=== PATIENT | male | born 1995 | race Caucasian/White ===

== ENCOUNTER 2018-06-27 15:27 | Inpatient (IN) | payer BC, OTHER ==
[~2018-06-27] VITALS: Ht 175.3 cm; Wt 59.0 kg
--- NOTE | 2018-06-27 16:00 | NUR ---
Intake Assessment; Patient is a 23 year old male, AOX4, presented to [facility] for ETOH and Opiate withdrawal. Patient appears moderately intoxicated but remained cooperative during nursing assessment. Patient reported to be allergic to Amoxicillin. Denies any seizure history. Admitting Vital signs are as follows ; BP 105/55, HR 88, respirations 18, Spo2 98% on room air, temperature 98.2, denies pain. Educated patient regarding unit protocol and policies, patient verbalized understanding. Will continue with further assessment when patient is up on the unit.
[2018-06-27] MEDS ORDERED: LORAZEPAM 1 MG TABLET PO PRN ×2 (17:00)
[2018-06-27] MEDS ORDERED: MIRALAX 17 GM POWD.PACK PO PRN (17:00)
[2018-06-27] MEDS ORDERED: MAGNESIUM HYDROXIDE 30 ML LIQUID UDC PO PRN (17:00)
[2018-06-27] MEDS ORDERED: BUPRENORPHINE HCL 2 MG TAB.SUBL SL PRN (17:00)
[2018-06-27] MEDS ORDERED: ONDANSETRON ODT 4 MG TAB.RAPDIS SL PRN (17:00)
[2018-06-27] MEDS ORDERED: ONDANSETRON 4 MG/2 ML VIAL IM PRN (17:00)
[2018-06-27] MEDS ORDERED: THIAMINE HCL 200 MG/2 ML VIAL IM ONE (17:00)
[2018-06-27] MEDS ORDERED: LORAZEPAM 2 MG/1 ML VIAL IM PRN (17:00)
[2018-06-27] MEDS ORDERED: MAG HYDROX/AL HYDROX/SIMETH 30 ML LIQUID UDC PO PRN (17:00)
[2018-06-27] MEDS ORDERED: diphenhydrAMINE 50 MG CAPSULE PO PRN (17:00)
[2018-06-27] MEDS ORDERED: ACETAMINOPHEN 325 MG TABLET PO PRN (17:00)
[2018-06-27 17:54] LABS: *AMPHETAMINE, URINE NEGATIVE (NEGATIVE); *BARBITURATE, URINE NEGATIVE (NEGATIVE); *CANNABINOID, URINE NEGATIVE (NEGATIVE); *COCCAINE, URINE NEGATIVE (NEGATIVE); *OPIATE, URINE POSITIVE (NEGATIVE); *PHENCYCLIDINE SCREEN,URINE NEGATIVE (NEGATIVE)
--- NOTE | 2018-06-27 19:00 | NUR ---
Admission note; Patient is a 23 year old male, AOX4, presented to [facility] for ETOH and Opiate withdrawal. Patient appears moderately intoxicated but remained cooperative during nursing assessment. Patient appears disheveled, red eyes noted, appears older than age stated with flat affect. Patient reported to be allergic to Amoxicillin. Denies any seizure history. Admitting Vital signs are as follows ; BP 105/55, HR 88, respirations 18, Spo2 98% on room air, temperature 98.2, denies pain. Educated patient regarding unit protocol and policies, patient verbalized understanding. Will continue with further assessment when patient is up on the unit. Substance use history discussed. Patient reported that he started drinking ETOH when he was 12 years old. At this rate patient has been drinking ETOH (whiskey/beer) for the past 2.5 months, last consumed on 06/26/18. Patient also reported using Heroin, he started using heroin when he was 16 years old. At this rate patient has been using 1 gram of heroin via IV daily for the past 2 months last consumed today 4 hours prior to admission . Patient had multiple attempts in achieving sobriety but remained unsuccessful. Longest sobriety lasted 4.5 months. Patient has been to multiple treatment Centers including [facility], [facility], [facility] and [facility]. Patient appears anxious during assessment. Patient verbalized "I came here today because i need help, i want to stay Sober but i know I can't do it on my own" . Patient stated that he is unhappy and doesn't like himself when he is intoxicated. Using Opiate and ETOH had negatively impacted his life. It started affecting his job performance, relationships and over all feelings of self worth. Patient verbalized "I recently relapsed and used these substances to help cope with anxiety and depression". Patient is seeking for medical help and is open to treatment options after discharge. Patient is motivated to achieve sobriety. Medical and psychiatric history discussed. Patient denies any past medical history. Patient reported history of Anxiety and depression diagnosed in September 2017. Patient received a prescription for Prozac and Zoloft but patient was non-compliant with medication regime. Patient is not taking any home medications at this time. Patient reported history of suicidal ideations in the past that occurred around September 2017. He was admitted at [facility] and was placed on a 5150 hold for Suicidal ideation.Patient denies any suicidal or homicidal ideation at this time. Patient is admitted under the care of Dr. Wells to room 308. Skin check done, skin is intact. Oriented patient to unit by DAIRY PROCESSING EQUIPMENT OPERATOR. Safety measures secured. Will continue to monitor patient.
--- NOTE | 2018-06-27 19:30 | NUR ---
Start of Shift Note Received a 23 y/o male px, admitted for medically supervised withdrawal from ETOH and Heroin. Px will be placed on 5 day Ativan and 4 day Subutex taper tomorrow, 06/28/2018. Last reported COWS 2 and CIWA 3 by AM shift nurse. During the rounds at 1930, px is awake on bed in fowlers position watching TV. Px appears anxious. He is unshaven with flat affect and poor eye contact. He states that his anxiety is mild at 3/10. He requested for sleep medications later tonight. Bed on lowest position, side rails up 2x, and call light within reach. Well continue to monitor.
[2018-06-27 20:00] VITALS: BP 98/57
--- NOTE | 2018-06-27 20:00 | NUR ---
COWS 3 and CIWA 5 Upon assessment, px appears anxious. He is unshaven with flat affect and poor eye contact. He states that his anxiety is mild at 3/10. No more complaints at the moment. IN= 69. will continue to monitor.
--- NOTE | 2018-06-27 21:07 | NUR ---
PRN Ativan and Benadryl Px received Ativan 1 mg PO for CIWA 5 and Benadryl 50 mg PO for insomnia. will continue to monitor
--- NOTE | 2018-06-27 22:10 | NUR ---
PRN Ativan and Benadryl reassessment On assessment, px is still awake on bed in fowlers position. He states that his anxiety is still mild at around2-3/10. will continue to monitor
[2018-06-27 22:25] LABS: AMYLASE 52 U/L (25-115); LIPASE 90 U/L (73-393)
[2018-06-27 22:29] LABS: ETHANOL < 3 MG/DL (0-0)
[2018-06-27 22:30] LABS: ALANINE AMINOTRANSFERASE 27 U/L (16-63); ALKALINE PHOSPHATASE 77 U/L (50-136); ASPARTATE AMINOTRANSFERASE 20 U/L (15-37); BILIRUBIN,TOTAL 0.4 mg/dL (0.2-1.0); CARBON DIOXIDE 31 mmol/L (21-32); CHLORIDE 104 mmol/L (98-107); GLUCOSE 102 mg/dL (74-106); MAGNESIUM 2.1 mg/dL (1.8-2.4); POTASSIUM 4.2 mmol/L (3.5-5.1); TOTAL PROTEIN, SERUM 7.3 g/dL (6.4-8.2); UREA NITROGEN, BLOOD 19 mg/dL (7-18)
[2018-06-27 22:43] LABS: BASOPHILS # (AUTO) 0.1 K/uL (0.0-8.0); BASOPHILS % (AUTO) 1.1 % (0.0-2.0); EOSINOPHILS # (AUTO) 0.1 K/uL (0.0-0.7); EOSINOPHILS % (AUTO) 2.6 % (0.0-7.0); HEMATOCRIT 43.1 % (36.7-47.1); HEMOGLOBIN 15.4 g/dL (12.5-16.3); LYMPHOCYTES # (AUTO) 2.2 K/uL (20.0-40.0); LYMPHOCYTES % (AUTO) 43.3 % (20.5-51.5); MEAN CORPUSCULAR HGB CONC 36 g/dL (32.5-36.3); MEAN CORPUSCULAR VOLUME 89.2 fL (73.0-96.2); MONOCYTES # (AUTO) 0.6 K/uL (2.0-10.0); MONOCYTES % (AUTO) 10.8 % (0.0-11.0); NEUTROPHILS # (AUTO) 2.2 K/uL (1.8-8.9); NEUTROPHILS % (AUTO) 42.2 % (38.5-71.5); PLATELET COUNT (AUTO) 223 K/uL (152-348); RED BLOOD CELL COUNT(AUTO) 4.83 MIL/uL (4.06-5.63); WHITE BLOOD COUNT (AUTO) 5.1 K/uL (3.6-10.2)
[2018-06-28] VITALS: BP 96/61
--- NOTE | 2018-06-28 | NUR ---
COWS and CIWA deferred COWS and CIWA deferred due to the px is asleep. To assess if the px is awake per doctor's order. will continue to monitor
[2018-06-28 04:00] VITALS: BP 90/60
--- NOTE | 2018-06-28 07:05 | NUR ---
End of Shift Note During the shift at 2106, px received Benadryl 50 mg PO for insomnia and Ativan 1 mg PO for CIWA 5. They were effective. Oral intake is 500 ml, voided 1x, without BM. Px slept for 8 hours. Last COWS 3 and CIWA 5. Bed on lowest position, side rails up 2x, and call light within reach. Px endorsed to AM shift nurse.
--- NOTE | 2018-06-28 07:50 | NUR ---
START OF SHIFT NOTE Received report from night nurse, 23 year old male admitted for ETOH/Heroin withdrawal. Patient to be start on Subutex and Ativan taper this morning. Per endorsement received PRN Benadryl, Ativan effective per night nurse, Last CIWA-5, COWS-3, slept for 8 hours. Received patient asleep responsive to verbal and tactile stimuli. Breathing normal no SOB noted, respiration even non labored. Skin intact warm and dry to touch. All safety measures in place. Will cont with plan of care.
[2018-06-28 08:00] VITALS: BP 105/60
[2018-06-28] MEDS: FOLIC ACID 1 MG TABLET PO SCH (08:46)
[2018-06-28] MEDS: THIAMINE HCL 100 MG TABLET PO SCH (08:46)
[2018-06-28] MEDS: MULTIVITAMINS,THERAPEUTIC TABLET PO SCH (08:46)
[2018-06-28] MEDS: LORAZEPAM 1 MG TABLET PO SCH ×4 (08:46→22:31)
--- NOTE | 2018-06-28 08:46 | NUR ---
COWS/CIWA ASSESSMENT COWS-4, CIWA-6. Scheduled Subutex was not administered due to low COWS score and patient verbalized he is not experiencing any withdrawal symptoms MD notified. Administered schedule Ativan for CIWA-6.
[2018-06-28] MEDS ORDERED: 4 DAY TAPER BUPRENORPHINE -SERENITY PROTOCOL SL PRN ×2 (09:00→17:00)
[2018-06-28] MEDS: BUPRENORPHINE HCL 2 MG TAB.SUBL SL SCH ×3 (09:00→21:59)
[2018-06-28] MEDS ORDERED: 4 DAY TAPER OF LORAZEPAM -SERENITY PROTOCOL PO PRN (09:00)
[2018-06-28] MEDS ORDERED: TUBERCULIN,PURIF.PROT.DERIV. 5 TU/0.1 ML TEST ID ONE (09:00)
[2018-06-28 12:00] VITALS: BP 107/62
--- NOTE | 2018-06-28 13:34 | NUR ---
CIWA/COWS ASSESSMENT COWS-4, CIWA-8, patient presented with flat facial expression, poor eye contact, anxious, agitated, restless, bilateral hand tremors. Patient was given his schedule medications. Will cont to monitor.
[2018-06-28 16:00] VITALS: BP 110/63
[2018-06-28] MEDS ORDERED: 5 DAY TAPER OF LORAZEPAM -SERENITY PROTOCOL PO PRN (17:00)
--- NOTE | 2018-06-28 19:23 | NUR ---
END OF SHIFT NOTE Gave report to night nurse, 23 year old male admitted for ETOH/Heroin withdrawal. Patient currently on 4 days Subutex and 5 days Ativan taper. Subutex taper hasn't started yet due to low COWS score-5 and patient denies any s/s of Heroin withdrawal but Ativan is tolerating well. Patient presented with sad facial expression, isolative, anxious, agitated, sweats, bilateral hand tremors. He rested in his room most of the shift, Encourage patient to attend groups activities to learn new coping skills. Last noted CIWA 5, COWS-9. All needs attended to promptly.Endorse patient to night nurse in stable condition.
--- NOTE | 2018-06-28 19:25 | NUR ---
START OF SHIFT Patient is a 23-year-old male admitted on 06/27/18 for ETOH and opiate withdrawal. Patient is currently on a 4-day Subutex and 5-day Ativan taper, both of which started today; however, patient has yet to receive any Subutex due to low COWS scores. Last COWS was 5, last CIWA was 9 per endorsement. Patient did not receive any PRN medications today. Upon assessment, patient is observed sleeping in bed with eyes closed, respirations even and unlabored. Patient is on fall and seizure precautions with no history of seizure. Safety measures in place, side rails up x2, bed locked in low position, call light within reach. Will continue to monitor.
[2018-06-28 20:00] VITALS: BP 115/56
--- NOTE | 2018-06-28 20:00 | NUR ---
COWS 5, CIWA 9 Patient is awake and requesting to go down to the smoking patio. Patient complains of body aches, some chills and anxiety; fine tremors noted bilaterally. Current COWS score is 5, CIWA is 9. SN to administer meds as ordered. Will continue to monitor.
--- NOTE | 2018-06-28 22:00 | NUR ---
SUBUTEX HELD Subutex held per order due to COWS less than 8. Charge nurse Funmi notified.
--- NOTE | 2018-06-28 22:29 | NUR ---
COWS 6, CIWA 10 Patient woke up complaining of symptoms of opiate withdrawal. SN performed COWS and CIWA at this time; scores 6 and 10, respectively.
[2018-06-28] MEDS: IBUPROFEN 600 MG TABLET PO PRN (22:31)
--- NOTE | 2018-06-28 23:31 | NUR ---
PRN MOTRIN Patient reports body aches 04/10. PRN Motrin given PO. Safety measures in place, side rails up x2, bed locked in low position, call light within reach. Will monitor for effectiveness. Addendum: 06/29/18 at 0320 by MORRO FLOYD LVN PRN MOTRIN given at 2230. Reassessment at 2330, noted to be effective.
[2018-06-29] VITALS: BP 102/59
--- NOTE | 2018-06-29 | NUR ---
COWS & CIWA DEFERRED COWS and CIWA deferred due to patient sleeping; to be assessed and scored while patient is awake. Respirations even and unlabored. Safety measures in place, side rails up x2, bed locked in low position, call light within reach. Will continue to monitor.
--- NOTE | 2018-06-29 01:50 | NUR ---
COWS 5, CIWA 9 Patient is awake, requested snacks and beverage from kitchen. Patient reports anxiety and chills, decreased body aches, some restlessness and difficulty falling back to sleep. Current COWS 5 and CIWA 9. Safety measures in place, call light within reach. Will continue to monitor.
[2018-06-29 04:00] VITALS: BP 96/56
--- NOTE | 2018-06-29 04:00 | NUR ---
COWS & CIWA DEFERRED COWS and CIWA deferred at this time due to patient sleeping; to be assessed and scored while patient is awake. Respirations even and unlabored. Safety measures in place, call light within reach, bed locked in low position. Will continue to monitor.
--- NOTE | 2018-06-29 07:10 | NUR ---
END OF SHIFT Patient is a 23-year-old male admitted on 06/27/18 for ETOH and opiate withdrawal. Patient is currently on a 4-day Subutex and 5-day Ativan taper, both of which started yesterday; tolerating well. Patient has yet to receive any Subutex due to low COWS scores. Last COWS was 5, last CIWA was 9 at 0150. Patient received PRN Motrin for body aches, noted to be effective. Patient slept for 7 hours, total intake of 855mL, void x1, stool x0. Patient is on fall and seizure precautions with no history of seizure. Safety measures in place, side rails up x2, bed locked in low position, call light within reach. Will endorse to day shift.
--- NOTE | 2018-06-29 07:40 | NUR ---
START OF SHIFT NOTE Received report from night nurse, 23 year old male admitted for ETOH/Heroin withdrawal. Patient continues with Ativan taper but Subutex still on hold due to low COWS score. Per endorsement received PRN Motrin effective per night nurse, Last CIWA-9, COWS-5, slept for 7 hours. Received patient alert awake oriented x4. Breathing normal no SOB noted, respiration even non labored. Skin intact warm and dry to touch. Educated patient current plan of the day and medication regimen, patient verbalized understanding.All safety measures in place. Will cont with plan of care.
[2018-06-29 08:00] VITALS: BP 107/66
[2018-06-29] MEDS: FOLIC ACID 1 MG TABLET PO SCH (08:55)
[2018-06-29] MEDS: MULTIVITAMINS,THERAPEUTIC TABLET PO SCH (08:55)
[2018-06-29] MEDS: LORAZEPAM 1 MG TABLET PO SCH ×3 (08:55→20:47)
[2018-06-29] MEDS: THIAMINE HCL 100 MG TABLET PO SCH (08:55)
--- NOTE | 2018-06-29 08:55 | NUR ---
COWS/CIWA ASSESSMENT Patient complains of body aches, anxiety, agitation, restless, sweats,chills, runny nose, stomach cramps, increased pulse rate, large pupil, fatigue, anhedonia, bilateral hand tremors. COWS score -13, and CIWA-11. Subutex taper initiate and other Meds given as ordered. Will cont to monitor.
[2018-06-29] MEDS ORDERED: BUPRENORPHINE HCL 2 MG TAB.SUBL SL SCH (09:00)
[2018-06-29 12:00] VITALS: BP 122/64
[2018-06-29] MEDS: BUPRENORPHINE HCL 2 MG TAB.SUBL SL SCH ×2 (14:33→20:48)
--- NOTE | 2018-06-29 14:33 | NUR ---
CIWA/COWS ASSESSMENT CIWA-12, COWS-12, Patient continues to exhibited s/s of withdrawal such as, anxiety, agitation, restless, body aches, runny nose, stomach cramps, sweats, chills. Patient was given schedule medications. Will cont to monitor.
[2018-06-29] MEDS: IBUPROFEN 600 MG TABLET PO PRN ×2 (14:42→20:47)
--- NOTE | 2018-06-29 14:42 | NUR ---
PRN MOTRIN Patient c/o general body aches 5/10. PRN Motrin 600mg PO was given as ordered. Will cont to monitor and reassess the patient.
--- NOTE | 2018-06-29 15:42 | NUR ---
MOTRIN REASSESSMENT Patient reported body aches lower to 2/10. Motrin was effective.
[2018-06-29 16:00] VITALS: BP 117/70
[2018-06-29] MEDS: DICYCLOMINE HCL 20 MG TABLET PO PRN (16:39)
--- NOTE | 2018-06-29 16:39 | NUR ---
PRN BENTYL Patient c/o of abdominal cramps /10, PRN Bentyl 20mg PO administered as ordered. Will cont to monitor and reassess.
--- NOTE | 2018-06-29 17:39 | NUR ---
BENTYL REASSESSMENT Patient reported stomach cramps lower to 2/10. Bentyl was effective.
--- NOTE | 2018-06-29 19:12 | NUR ---
END OF SHIFT NOTE Gave report to night nurse, Patient admitted for ETOH/Heroin withdrawal. Patient continues with his Ativan/Subutex taper tolerating well. Patient presented with flushed face, increased anxiety, agitation, diaphoresis, fatigue, restless, stomach cramps, body aches, patient received his scheduled medication and also received PRN Motrin for body aches and Bentyl for stomach cramps noted to be effective. Patient noted attending groups activities. Vital signs WNL. Encouraged patient to use diversional activities to alleviate anxiety. Patient denies any SI/HI. Last CIWA-11, COWS-11. All needs attended. Endorse care to night nurse.
--- NOTE | 2018-06-29 19:40 | NUR ---
Start of shift note Received report from day shift nurse. Patient is a 23 year old male admitted for ETOH and Opiate withdrawal. Patient is on 1st day of his 4 day Subutex and 5 day Ativan taper. Patient was given PRN Motrin and Bentyl , effective. Patient in the room, resting. Patient's room dirty and odorous. Patient presents with flat affect, disheveled and odorous. Safety measures in place. Call light within reach. Will continue to monitor.
[2018-06-29 20:00] VITALS: BP 100/60
--- NOTE | 2018-06-29 20:00 | NUR ---
COWS and CIWA assessment Patient reports anxiety, restless legs, irritable, fatigue, hot and cold sweats, stuffy nose, body aches, yawning, tremors and sensitive to light. COWS 13 and CIWA 13.
--- NOTE | 2018-06-29 20:47 | NUR ---
PRN Motrin administration Patient c/o generalized body aches. Will monitor for effectiveness
--- NOTE | 2018-06-29 21:47 | NUR ---
PRN Motrin administration Patient lying in bed with eyes closed. Respiration even and unlabored. No facial grimacing. Will continue to monitor
--- NOTE | 2018-06-30 | NUR ---
COWS and CIWA deferred Patient lying in bed with eyes closed. Respiration even and unlabored. VS refused. Will continue to monitor
--- NOTE | 2018-06-30 04:00 | NUR ---
COWS and CIWA deferred Patient lying in bed with eyes closed. Respiration even and unlabored. VS refused. Will continue to monitor
--- NOTE | 2018-06-30 07:13 | NUR ---
End of shift note Patient slept 9 hours. Fluid intake 925 ml. Voided x 1. No BM. Monitored patient throughout shift. Patient isolative and withdrawn. Patient presented with flat affect, disheveled and odorous. Patient reported anxiety, restless legs, fatigue, hot and cold sweats, stuffy nose, body aches, tremors and sensitive to light. Scheduled taper given as ordered. PRN Motrin given for generalized body aches. Safety measures in place. Call light within reach. Will continue. Last and CI.
--- NOTE | 2018-06-30 07:30 | NUR ---
Start of Shift Production Quality Analyst received report on 23 year old male admitted on 06/27/18 for medical management of ETOH and Opiate withdrawals. Pt endorses allergies to Amoxicillin, full code and regular diet. Denies PMH, endorses PPH of anxiety and depression. Pt currently on a 4 day Subutex and 5 day Ativan taper, with last CIWA 13 and COWS 13, per NOC report. Pt was administered Motrin as PRN medication on NOC. Production Quality Analyst encounters pt in pts room with pt resting with eyes closed. Even and unlabored respirations noted. Bed in low position with wheels locked and side rails up x2. Will continue to monitor, support and encourage according to plan of care.
[2018-06-30 08:30] VITALS: BP 113/75
--- NOTE | 2018-06-30 08:30 | NUR ---
CIWA 11/COWS 11 Pt is anxious, restless, tremulous, diaphoretic, with stuffy nose and complains of chills, myalgia and stomach cramps. Will continue to monitor, support and encourage according to plan of care.
[2018-06-30 09:07] LABS: HEPATITIS B SURFACE AG Negative (Negative)
[2018-06-30] MEDS: LORAZEPAM 1 MG TABLET PO SCH ×2 (09:47→20:39)
[2018-06-30] MEDS: MULTIVITAMINS,THERAPEUTIC TABLET PO SCH (09:47)
[2018-06-30] MEDS: DICYCLOMINE HCL 20 MG TABLET PO PRN (09:47)
[2018-06-30] MEDS: FOLIC ACID 1 MG TABLET PO SCH (09:47)
[2018-06-30] MEDS: BUPRENORPHINE HCL 2 MG TAB.SUBL SL SCH ×3 (09:47→20:39)
[2018-06-30] MEDS: THIAMINE HCL 100 MG TABLET PO SCH (09:47)
--- NOTE | 2018-06-30 09:47 | NUR ---
CHRIS Stoll Pt complains of stomach cramps/pain. Hand I Blocker administered medication to order, with pt tolerating well. Will continue to monitor, support and encourage according to plan of care.
--- NOTE | 2018-06-30 10:47 | NUR ---
PRN Re-Assessment Pt endorses some relief in intensity of cramps, " it cramps, but not as bad." Will continue to monitor, support and encourage according to plan of care.
[2018-06-30 12:00] VITALS: BP 108/68
--- NOTE | 2018-06-30 12:00 | NUR ---
CIWA 11/COWS 10 Pt is diaphoretic, tremulous, anxious and restless. Pt with stuffy nose, and complaints of myalgia and chills. Will continue to monitor, support and encourage according to plan of care.
--- NOTE | 2018-06-30 14:26 | NUR ---
Therapist prompted client to attend group therapy.
[2018-06-30 16:30] VITALS: BP 109/67
--- NOTE | 2018-06-30 16:30 | NUR ---
CIWA 12/COWS 12 Pt is tremulous, anxious, restless and diaphoretic, with complaints of chills, nausea and myalgia. Will continue to monitor, support and encourage according to plan of care.
[2018-06-30] MEDS: METHOCARBAMOL 750 MG TABLET PO PRN (17:30)
[2018-06-30] MEDS: CLONIDINE HCL 0.1 MG TABLET PO PRN (17:30)
[2018-06-30] MEDS: HYDROXYZINE PAMOATE 25 MG CAPSULE PO PRN (17:30)
--- NOTE | 2018-06-30 17:30 | NUR ---
PRN Clonidine/Vistaril Pt complains of anxiety 02/08. Pt is anxious and restless. Cloth Winder administered medication per order with pt toleratign well. Will continue to monitor, support and encourage according to plan of care.
--- NOTE | 2018-06-30 17:30 | NUR ---
CHRIS Murillo Pt with complaints of muscle spasms and aches. Qi Specialist administered per order with pt tolerating well. Will continue to monitor, support and encourage according to plan of care.
--- NOTE | 2018-06-30 18:30 | NUR ---
PRN Clonidine/Vistaril Re-Assessment Pt endorses feeling better about his anxiety. Will continue to monitor, support and encourage according to plan of care.
--- NOTE | 2018-06-30 18:30 | NUR ---
CHRIS Murillo Re-Assessment Pt endorses feeling relief, " not nearly as bad, thanks." Will continue to monitor, support and encourage according to plan of care.
--- NOTE | 2018-06-30 19:13 | NUR ---
End of Shift Electrician Supervisor Airplane provided report on 23 year old male admitted on 06/27/18 for medical management of ETOH and Opiate withdrawals. Pt endorses allergies to Amoxicillin, full code and regular diet. Denies PMH, endorses PPH of anxiety and depression. Pt currently on a 4 day Subutex and 5 day Ativan taper, with last CIWA 12 and COWS 12, recorded at 1630. Pt was administered Bentyl(stomach cramps), Robaxin(myalgia) and Clonidine/Vistaril(anxiety) as PRN medications on this shift. Pt is A/O x4 and able to make needs known. Pt with clear thought and speech process. Pt with a flat affect an depressed mood. Anxious, restless, tremulous and diaphoretic with complaints of myalgia, chills and nausea. Bed in low position with wheels locked and side rails up x2.
--- NOTE | 2018-06-30 19:30 | NUR ---
Start of shift note Received report from day shift nurse. Patient is a 23 year old male admitted for ETOH/Opiate withdrawal. Patient is on 2nd day of his 4 day Subutex taper and 5 day Ativan taper. Patient was given PRN Clonidine, Robaxin and Bentyl. Last COWS 12 and CIWA 12. Patient room dirty, clothes thrown on floor. Patient alert and oriented x 4. Patient presents with flat affect, disheveled and anxious. Safety measures in place. Call light within reach. Will continue to monitor
[2018-06-30 20:00] VITALS: BP 106/65
--- NOTE | 2018-06-30 20:00 | NUR ---
COWS and CIWA assessment Patient reports anxiety, restlessness, irritability, hot and cold sweats, stuffy nose, abdominal cramping and tremors . COWS 11 and CIWA 10
[2018-06-30] MEDS: TRAZODONE 50 MG TABLET PO PRN (20:50)
--- NOTE | 2018-06-30 20:50 | NUR ---
PRN Trazadone administration Patient requests for sleep aid. Will monitor for effectiveness
--- NOTE | 2018-06-30 22:00 | NUR ---
PRN Trazadone re-assessment Patient lying in bed with eyes closed. Respiration even and unlabored. Will continue to monitor
[2018-07-01] VITALS: BP 114/80
--- NOTE | 2018-07-01 | NUR ---
COWS and CIWA deferred Patient lying in bed with eyes closed. Respiration even and unlabored. Will continue to monitor
--- NOTE | 2018-07-01 04:00 | NUR ---
COWS and CIWA deferred Patient lying in bed with eyes closed. Respiration even and unlabored. Will continue to monitor
--- NOTE | 2018-07-01 07:08 | NUR ---
End of shift note Patient slept 9 hours. Fluid intake 1,710 ml. Voided x 3. BM x 1. Patient alert and Patient presented with flat affect, disheveled and anxiety. Patient was given PRN trazadone for sleep. Patient states medications are effective in controlling his withdrawal symptoms. Patient compliant with medication and treatment plan. Safety measures in place. Call light within reach. Will continue to monitor. Last COWS 11 and CIWA 10.
--- NOTE | 2018-07-01 07:30 | NUR ---
Start of Shift Pot Holder Binder received report on 23 year old male admitted on 06/27/18 for medical management of ETOH and Opiate withdrawals. Pt endorses allergies to Amoxicillin, full code and regular diet. Denies PMH, endorses PPH of anxiety and depression. Pt currently on a 4 day Subutex and 5 day Ativan taper, with last CIWA 10 and COWS 11, per NOC report. Pt was administered Trazodone(insomnia) as PRN medication on NOC. Pot Holder Binder encounters pt in pts room with pt resting with eyes closed. Even and unlabored respirations noted. Bed in low position with wheels locked and side rails up x2. Will continue to monitor, support and encourage according to plan of care.
[2018-07-01 08:30] VITALS: BP 94/49
--- NOTE | 2018-07-01 08:30 | NUR ---
CIWA 8/COWS 9 Pt is anxious, restless and tremulous with chills and nausea. Will continue to monitor, support and encourage according to plan of care.
[2018-07-01] MEDS ORDERED: LORAZEPAM 1 MG TABLET PO SCH (09:00)
[2018-07-01] MEDS ORDERED: BUPRENORPHINE HCL 2 MG TAB.SUBL SL SCH (09:00)
[2018-07-01] MEDS: FOLIC ACID 1 MG TABLET PO SCH (09:23)
[2018-07-01] MEDS: MULTIVITAMINS,THERAPEUTIC TABLET PO SCH (09:23)
[2018-07-01] MEDS: THIAMINE HCL 100 MG TABLET PO SCH (09:23)
[2018-07-01 12:29] VITALS: BP 119/78
--- NOTE | 2018-07-01 12:41 | NUR ---
CIWA 7/COWS 6 Pt complains of myalgia and anxiety, pt with tremors and diaphoresis. Will continue to monitor, support and encourage according to plan of care.
[2018-07-01] MEDS ORDERED: IBUP-1955 PO (13:59)
[2018-07-01] MEDS ORDERED: CLON0.1T14 PO (13:59)
[2018-07-01] MEDS ORDERED: METH-406 PO (13:59)
[2018-07-01] MEDS ORDERED: HYDR-3895 PO (13:59)
[2018-07-01] MEDS ORDERED: TRAZ-213 PO (13:59)
[2018-07-01 16:30] VITALS: BP 106/64
--- NOTE | 2018-07-01 17:04 | NUR ---
CIWA 6/COWS 7 Pt is tremulous, anxious, diaphoretic and restless. Pt with complaints of nausea, chills, and myalgia. Will continue to monitor, support and encourage according to plan of care.
--- NOTE | 2018-07-01 18:56 | NUR ---
End of Shift Food Specialist provided report on 23 year old male admitted on 06/27/18 for medical management of ETOH and Opiate withdrawals. Pt endorses allergies to Amoxicillin, full code and regular diet. Denies PMH, endorses PPH of anxiety and depression. Pt has completed a 4 day Subutex and 5 day Ativan taper, with last CIWA 6 and COWS 7, recorded at 1630. Pt is scheduled for discharge tomorrow. No PRN medications administered this shift . Pt is A/O x4 and able to make needs known. Pt with a clear thought and speech process. Flat affect with depressed mood. Pt denies SI/HI or A/VH. Pt is anxious and restless, but cooperative and pleasant with remote mortgage underwriter. Pt is withdrawn and guarded. Bed in low position with wheels locked and side rails up x2.
--- NOTE | 2018-07-01 19:30 | NUR ---
Start of Shift Patient Received. Per endorsement, patient completed a modified 4 day Subutex and 5 day Ativan taper. Patient is set for discharge tomorrow morning to [facility]. No PRN Medications administered. Last noted CIWA 6 and COWS 7. Upon rounds patient is noted in bed, awake, alert and verbally responsive. Patient is noted to be disheveled, uncombed hair, and unshaved. Patient avoids eye contact and noted to be fidgety, anxious, and easily irritable, with flat affect. Patient is able to verbalize that medication have been effective in minimize signs and symptoms of withdrawal. All needs attended to promptly. Will continue plan of care as ordered.
[2018-07-01 20:30] VITALS: BP 106/64
[2018-07-01] MEDS: CLONIDINE HCL 0.1 MG TABLET PO PRN (21:34)
[2018-07-01] MEDS: METHOCARBAMOL 750 MG TABLET PO PRN (21:34)
[2018-07-01] MEDS: TRAZODONE 50 MG TABLET PO PRN (21:34)
--- NOTE | 2018-07-01 21:40 | NUR ---
PRN Medication Administration patient is noted to verbalize increased anxiety, intermittent sweats, restless legs, body aches, and inability of falling asleep. PRN Robaxin, Clonidine, and trazodone. Will continue to monitor.
--- NOTE | 2018-07-01 22:40 | NUR ---
PRN Medication Reassessment Patient is noted in bed with eyes closed. Breathing even and non labored. No signs of restlessness or discomfort noted. PRN Clonidine, Robaxin, and Trazodone noted to be effective. Will continue to monitor.
--- NOTE | 2018-07-02 00:49 | NUR ---
COWS and CIWA Assessment Patient is noted in bed with eyes closed. Breathing even and non labored. Patient refused vitals. CIWA and COWS not able to complete assessment as per order. No restlessness or discomfort noted. Will continue to monitor.
--- NOTE | 2018-07-02 07:18 | NUR ---
End of Shift Patient is in bed with eyes closed. Breathing even and non labored. No signs of restlessness or discomfort noted. Patient has completed a modified 4 day Subutex and 5 day Ativan taper with orders for discharge this morning to [facility]. Patient was noted with Patient received PRN Clonidine, Robaxin, and Trazodone with medications noted to be effective. Last noted CIWA 6 and COWS 5. Patient was noted with increased anxiety, restlessness, insomnia, increased sweats, irritability, and intermittent body aches. Patient is noted to be disheveled, uncombed hair, unshaved, and avoids eye contact. All needs attended to promptly. Will continue plan of care as ordered.
--- NOTE | 2018-07-02 07:20 | NUR ---
Start Of Shift Patient is a 23 yr old male who was admitted to [facility] on 06/27/18 for a medically supervised withdrawal from ETOH ( Whisky) and Opiates ( heroin), he has completed a 4 day Subutex and 5 day Ativan taper and will be discharged this AM to " [place] [facility] ". PRN medications given on PM shift: Robaxin, Clonidine and Trazodone, he slept for 7 hours and last COWS 6 and CIWA 5. Currently he is in bed asleep, breathing even and unlabored, call light within reach. Continue to follow MD orders for discharge.
[2018-07-02 08:00] VITALS: BP 99/48
--- NOTE | 2018-07-02 09:15 | NUR ---
COWS 5 CIWA 6 Patient presents with increased anxiety, restlessness and generalized body aches Robaxin 750mg PO and Vistaril 50mg PO given
[2018-07-02] MEDS: HYDROXYZINE PAMOATE 25 MG CAPSULE PO PRN (09:18)
[2018-07-02] MEDS: MULTIVITAMINS,THERAPEUTIC TABLET PO SCH (09:18)
[2018-07-02] MEDS: THIAMINE HCL 100 MG TABLET PO SCH (09:18)
[2018-07-02] MEDS: FOLIC ACID 1 MG TABLET PO SCH (09:18)
[2018-07-02] MEDS: METHOCARBAMOL 750 MG TABLET PO PRN (09:18)
--- NOTE | 2018-07-02 09:18 | NUR ---
PRN Robaxin 750mg PO given for muscle aches Vistaril 50mg Po given for r/o anxiety
--- NOTE | 2018-07-02 09:38 | NUR ---
Discharge note Patient has signed and dated all discharge paperwork, all prescriptions and personal belongings placed in zip tied bag, VS stable, patient voices no SI/HI at this time, Last COWS 5 and CIWA 6. Wristband removed and patient ambulated off the unit and was picked up by " [facility]" for transport to " [facility]".
== END 2018-07-02 09:34 | disposition other institution (70) | DRG 895 ==
LOC: SRC 16:04
PROVIDERS: ADMIT Internal Medicine; ATTEND Internal Medicine
PROC: HZ2ZZZZ Detoxification Services for Substance Abuse Treatment (ICD-10-PCS; principal; 2018-06-27)
PROC: HZ41ZZZ Group Counseling for Substance Abuse Treatment, Behavioral (ICD-10-PCS; 2018-06-29)
PROC: HZ31ZZZ Individual Counseling for Substance Abuse Treatment, Behavioral (ICD-10-PCS; 2018-06-30)
DX: F10.230 Alcohol dependence with withdrawal, uncomplicated (principal); F10.220 Alcohol dependence with intoxication, uncomplicated; F11.23 Opioid dependence with withdrawal; Y90.0 Blood alcohol level of less than 20 mg/100 ml; E86.0 Dehydration; F17.210 Nicotine dependence, cigarettes, uncomplicated; F41.1 Generalized anxiety disorder; I95.9 Hypotension, unspecified; G47.00 Insomnia, unspecified; F32.9 Major depressive disorder, single episode, unspecified
CPT/HCPCS: 36415; 70030-TC; 80307; 80361; 83690; 83735; 85025; 86592; 86705; 86803; 87340; 87806; A4663; G0480; Q0163